=== PATIENT | female | born 1955 | race Caucasian/White ===

== ENCOUNTER 2017-01-08 08:10 | Day surgery (SDC) | payer BC, SELFPAY ==
[~2017-01-08] VITALS: Ht 160 cm
--- NOTE | 2017-01-10 08:10 | OR ---
ADMIT: 01/08/2017 RM/LOC: [facility] MR#: [id number] [address] [id number] [facility] [address] [address] Operative/Delivery Room Report SEX: F AGE: 61 : 1955 SURGERY DATE: 01/08/2017 SURGEON: Masoud Ortega MD GENETIC ENGINEER: None. PREPROCEDURE DIAGNOSES: 1. Lumbar spondylosis. 2. Lumbago. POSTPROCEDURE DIAGNOSES: 1. Lumbar spondylosis. 2. Lumbago. PROCEDURE PERFORMED: Right L3, L4, L5 and S1 radiofrequency thermocoagulation. INDICATIONS FOR PROCEDURE: The patient is a pleasant female with history of chronic low back pain secondary to above-mentioned diagnosis comes in for planned right-sided lumbar radiofrequency ablation. ANESTHESIA: Local without sedation. ESTIMATED BLOOD LOSS: Zero. COMPLICATIONS: None immediately evident. DESCRIPTION OF THE PROCEDURE: After the patient was seen in the preoperative area, vitals signs were taken. Prior to the procedure, the risks, benefits, and alternative therapies were discussed at length. Patient consent was obtained and updated. The patient was taken to the fluoroscopy suite and placed on the fluoroscopy table in the prone position. Pressure points were padded to comfort, monitors applied, and a timeout performed. ADMIT: 01/08/2017 RM/LOC: [facility] MR#: [id number] [id number] [place], [facility] [address] [address] Operative/Delivery Room Report SEX: F AGE: 61 : 1955 Fluoroscopy was brought in to identify the transverse process of the right L3, L4, L5 and S1. To anesthetize the skin, a spinal cannula was placed near the junction of pedicle and transverse process. Once we obtained appropriate parameters for sensory motor testing, we proceeded with radiofrequency thermocoagulation at each level, which consisted of 80 degrees for 90 seconds. The patient tolerated the procedure well. The patient did not feel any stimulation below her knees. The patient was discharged to post anesthesia care without any immediate complications. PLAN: Discharge instructions were given, followup scheduled. 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 Masoud Ortega MD/ sumaya JOB #: [id number] CC: Masoud Ortega, Attending Physician NO FAMILY PHYSICIAN, Family Physician
== END 2017-01-08 09:57 | disposition home or self-care (01) ==
LOC: SSS 08:10
PROC: 3E0T3TZ Introduction of Destructive Agent into Peripheral Nerves and Plexi, Percutaneous Approach (ICD-10-PCS; principal; 2017-01-08)
PROC: BR16ZZZ Fluoroscopy of Lumbar Facet Joint(s) (ICD-10-PCS; principal; 2017-01-08)
DX: G89.29 Other chronic pain (principal); M47.816 Spondylosis without myelopathy or radiculopathy, lumbar region; M79.7 Fibromyalgia; Z79.899 Other long term (current) drug therapy

== ENCOUNTER 2017-01-23 06:30 | Day surgery (SDC) | payer BC ==
[~2017-01-23] VITALS: Ht 160 cm
--- NOTE | 2017-01-24 08:22 | OR ---
ADMIT: 01/23/2017 RM/LOC: [facility] MR#: [id number] [id number] [place] [address] [address] Operative/Delivery Room Report SEX: F AGE: 61 : 1955 SURGERY DATE: 01/23/2017 SURGEON: Masoud Ortega MD PLANT PRODUCTION WORKER: None. PREPROCEDURE DIAGNOSES: 1. Lumbar spondylosis. 2. Lumbago. POSTPROCEDURE DIAGNOSES: 1. Lumbar spondylosis. 2. Lumbago. PROCEDURE PERFORMED: Left L3, L4, L5 and S1 radiofrequency thermocoagulation. INDICATIONS FOR PROCEDURE: The patient is a pleasant woman with history of chronic low back pain secondary to above-mentioned diagnoses comes here for planned left-sided lumbar radiofrequency ablation. ANESTHESIA: Local without sedation. ESTIMATED BLOOD LOSS: Zero. COMPLICATIONS: None immediately evident. DESCRIPTION OF THE PROCEDURE: After the patient was seen in the preoperative area, vitals signs were taken. Prior to the procedure, the risks, benefits, and alternative therapies were discussed at length. Patient consent was obtained and updated. The patient was taken to the fluoroscopy suite and placed on the fluoroscopy table in the prone position. Pressure points were padded to comfort, monitors applied, and a timeout performed. ADMIT: 01/23/2017 RM/LOC: [facility] MR#: [id number] [address] [place] [id number] [place], [facility] [address] [address] Operative/Delivery Room Report SEX: F AGE: 61 : 1955 Fluoroscopy was brought in to identify the transverse process of the left- sided L3, L4, L5 and S1. To anesthetize the skin, a spinal cannula was placed near the junction of pedicle and transverse process. Once we obtained appropriate parameters for sensory motor testing, we proceeded with radiofrequency thermocoagulation at each level, which consisted of 80 degrees for 90 seconds. The patient tolerated the procedure well. The patient did not feel any stimulation below her knees. The patient was discharged to post anesthesia care without any immediate complications. PLAN: Discharge instructions were given, followup scheduled. 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 Masoud Ortega MD/ sumaya JOB #: [id number] CC: Masoud Ortega, Attending Physician [place], Family Physician
== END 2017-01-23 08:20 | disposition home or self-care (01) ==
LOC: SSS 06:30
PROC: 3E0T3TZ Introduction of Destructive Agent into Peripheral Nerves and Plexi, Percutaneous Approach (ICD-10-PCS; principal; 2017-01-23)
PROC: BR16ZZZ Fluoroscopy of Lumbar Facet Joint(s) (ICD-10-PCS; principal; 2017-01-23)
DX: G89.29 Other chronic pain (principal); M47.26 Other spondylosis with radiculopathy, lumbar region; M79.7 Fibromyalgia; Z79.899 Other long term (current) drug therapy; Z98.890 Other specified postprocedural states